=== PATIENT | female | born 1985 | race Caucasian/White ===

== ENCOUNTER 2022-01-01 21:26 | Emergency (ER) | payer MEDICAID, SELFPAY ==
[2022-01-01 21:28] VITALS: BP 139/87; PULSE 101; RESP 14; TEMP 36.6; O2SAT 98; BMI 28.4
--- NOTE | 2022-01-01 21:53 | EDS_ITS ---
HPI History of Present Illness Chief Complaint: Other, Pain/Inj Detail of Chief Complaint: Upper neck and back pain without any trauma. Informant: patient Onset/Context/Timing Onset: Today and Weeks Current Severity: Moderate Maximum Severity: Moderate Associated Symptoms Associated Symptoms: Negative for Parasthesias, Weakness, Loss of function, Inability to ambulate, Loss of consciousness or Amnesia Narrative Narrative: 36-year-old female history of fibromyalgia, thyroid cancer with thyroidectomy, hypertension and kidney stones. Patient states she has had back problems the last several months she has been adjusted several times by chiropractor. Said recently she let her son walk on her back. 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 States that she is got pain in her upper back and neck. Mild headache. Worse with movement. No fever. No tr auma. No blood thinners. No family history of intracranial bleeds or brain aneurysms. Prior similar symptoms: Yes Recent Illness/Hospitalization: No PFSH PFSH Medical History (Updated 01/01/22 @ 22:[address] Jose Ruiz MD) Anxiety Asthma Bipolar disorder Cancer Depression Former smoker Hypertension Hypothyroidism Kidney stones Migraines Seizures Home Medications brexpiprazole 0.5 mg tablet (Rexulti) 0.5 mg PO DAILY 01/01/22 [History Last Taken Unknown] buspirone 10 mg tablet 10 mg PO BID 01/01/22 [History Last Taken Unknown] enalapril maleate 20 mg tablet (Vasotec) 20 mg PO DAILY 01/01/22 [History Last Taken Unknown] hydroxyzine HCl 10 mg tablet 75 mg PO TID 01/01/22 [History Last Taken Unknown] levothyroxine 200 mcg tablet 200 mcg PO DAILY 01/01/22 [History Last Taken Unknown] metaxalone 800 mg tablet 800 mg PO TID PRN muscle pain 7 days #21 tabs 01/01/22 [Rx Last Taken Unknown] Allergy/AdvReac Type Severity Reaction Status Date / Time Penicillins AdvReac Hives Verified 01/01/22 21:33 Surgical History (Updated 01/01/22 @ 21:58 by Guerita Hairston) H/O thyroidectomy History of appendectomy History of cholecystectomy Social History Smoking Status: Former smoker ROS ROS ED ROS Narrative Neck and upper back pain. Review of Systems ROS Unobtainable: Denies due to encephalopathy Constitutional Constitutional ED: Denies chills or fever(s) Eyes Eyes: Denies blurry vision ENT ENT ED: Denies ear pain Cardiovascular Cardiovascular: Denies chest pain Respiratory/Chest Respiratory/Chest: Denies cough Gastrointestinal Gastrointestinal: Denies abdominal pain Genitourinary Genitourinary ED: Denies dysuria Musculoskeletal Musculoskeletal: Reports back pain, myalgias and neck pain; Denies arthralgias Integumentary Denies abscess Neurologic Neurologic: Reports headache(s) Psychiatric Psychiatric: Denies anxiety Endocrine Endocrinology: Denies cold intolerance Hematologic/Lymphatic Hematologic/Lymphatic: Denies easy bleeding Allergic/Immunologic Allergic/Immunologic ED: Denies mouth swelling or tongue swelling EXAM Physical Exam Narrative Exam Narrative: 36-year-old female vital signs are stable afebrile. H EENT exam unremarkable atraumatic. Pupils round reactive light. Her paraspinal soft tissue on both sides is tense and tender consistent with muscle spasm. Also her upper back. There is no trauma. No meningismus. Trachea midline no lymphadenopathy. Lungs clear to auscultation. Heart regular rhythm no murmur. Rate about 100. Abdomen soft nontender. Moving all 4 extremities. Neurovascular intact. Normal motor strength bilaterally. Normal dorsi plantar flexion. Normal sensation. Neck and upper back has soft tissue tenderness and muscle spasm. Neurologic exam is normal. NIH is 0. Const Vital Signs: 01/01/22 21:28 01/01/22 22:06 Temperature 97.8 F Temperature Source Temporal Pulse Rate 101 H Respiratory Rate 14 Respiratory Pattern Normal Blood Pressure 139/87 H Blood Pressure Mean 104 Pulse Ox 98 Oxygen Delivery Method Room Air Positive well nourished and well developed; Negative for cachectic, contractures or unkempt General Appearance ED: well developed; Negative for unkempt, cachectic or contractures Nutritional Appearance: Negative for cachectic HEENT atraumatic; Negative for trauma or tenderness Eyes PERRL and EOMs intact bilaterally Neck No full ROM Neck Narrative: Bilateral soft tissue tenderness to her paracervical musculature. And also upper back consistent with muscle spasms. General: tenderness Chest Wall inspection of chest normal and palpation of chest normal Resp normal respiratory effort and clear to auscultation bilaterally Effort and Inspection: Negative for pain with movement Auscultation: Negative for rales, rhonchi, wheezes, diminished lung sounds or other Cardio regular rhythm, S1 normal heart sound, S2 normal heart sound and no murmurs Palpation: Negative for palpable S3 Rate: regular rate GI normal to inspection, nondistended, normoactive bowel sounds, non-tender, non-distended and no masses Inspection: Negative for abdominal distention Auscultation: normoactive bowel sounds Palpation: soft Back/Spine normal to inspection and no thoracic nor lumbar tenderness Back/Spine Narrative: Paracervical and upper back soft tissue tenderness. No spine tenderness. Consistent with muscle spasm. Extremity normal to inspection and full ROM General Extremety ED: Negative for deformity or edema General Extremity: Negative for deformity or edema Neuro oriented x3, CN's II-XII intact bilaterally, moves all extremities, no focal motor deficits and no sensory deficits noted Sensorium / Orientation: alert Motor Exam: strength 5/5 throughout Psych mental status grossly normal and thought process normal Appearance: Negative for unkempt Attitude: No agitated Mood & Affect: anxious; Negative for depressed Skin no rashes or lesions noted, no wounds and no jaundice Rashes: No rashes noted Trauma: Negative for abrasion Wounds: Negative for wounds noted MDM MDM MDM Narrative Medical decision making narrative: 36-year-old female fibromyalgia as bilateral neck and upper back soft tissue tenderness consistent with myofascial strain and spasm. She will be treated with IM Toradol and p.o. Valium and reassess. She does not need any imaging because she has had no injury or trauma. This is been going on now for several weeks to months. Repeat exam patient is resting more comfortably. She is less anxious. She believes that since her spine I explained to her its its soft tissue muscle spasm. She will be discharged home with a prescription for Skelaxin. Anti-inflammatories. And follow-up with her primary care physician if not improving. Discharge Plan Triage Chief Complaint: Other, Pain/Inj ED Provider: Jose Ruiz Dx/Rx/DC Orders Clinical Impression: Muscle spasm Instructions: ED Back Spasm, No Trauma, ED Neck Spasm, No Trauma Prescriptions: New metaxalone 800 mg tablet 800 mg PO TID PRN (Reason: muscle pain) 7 Days Qty: 21 0RF No Action enalapril maleate [Vasotec] 20 mg Tablet 20 mg PO DAILY buspirone 10 mg Tablet 10 mg PO BID levothyroxine 200 mcg Tablet 200 mcg PO DAILY hydroxyzine HCl 10 mg Tablet 75 mg PO TID Rexulti 0.5 mg Tablet 0.5 mg PO DAILY Primary Care Provider: Care Physician,No Primary Referrals: Marly Lance MD [STAFF PHYSICIAN] - As Needed NOT,DEFINED [NON-STAFF] - Activity Restrictions/Additional Instructions: Motrin and Tylenol for pain. Skelaxin as a muscle relaxant. Hot shower, warm bath, hot tub and massage. This should progressively improve. Follow-up with your doctor if not improving. Disposition Disposition: Home, Self Care
[2022-01-01] MEDS: diazePAM 5 MG Tablet 10 MG PO (22:01)
[2022-01-01 23:10] VITALS: RESP 16
== END 2022-01-01 23:11 | disposition home or self-care (01) ==
LOC: ED 22:25
PROVIDERS: Emergency Provider Emergency Medicine; Visit Provider Emergency Medicine
DX: M62.838 Other muscle spasm (principal); F31.9 Bipolar disorder, unspecified; G40.909 Epilepsy, unspecified, not intractable, without status epilepticus; F41.9 Anxiety disorder, unspecified; J45.909 Unspecified asthma, uncomplicated; E03.9 Hypothyroidism, unspecified; I10 Essential (primary) hypertension; Z87.442 Personal history of urinary calculi; M79.7 Fibromyalgia; Z79.899 Other long term (current) drug therapy; Z85.850 Personal history of malignant neoplasm of thyroid; Z87.891 Personal history of nicotine dependence
CPT/HCPCS: 99283

== ENCOUNTER 2022-11-27 23:00 | Emergency (ER) | payer MEDICAID, SELFPAY ==
[2022-11-27 23:01] VITALS: BP 133/90; PULSE 80; RESP 15; TEMP 36.3; O2SAT 99; BMI 26.4
--- NOTE | 2022-11-28 00:20 | CT_ITS ---
INDICATION: LLQ pain EXAMINATION: CT ABDOMEN AND PELVIS WITH CONTRAST - CT Abdomen And Pelvis W/ Contrast Injection TECHNIQUE: Helically acquired images were obtained of the abdomen and pelvis following IV contrast. A radiation dose optimization technique was used for this scan. IV Contrast dosage and agent: 100 mL Isovue-370 Oral contrast: None. COMPARISON: None. FINDINGS: LOWER CHEST: Mild dependent atelectasis.. No cardiomegaly or pericardial effusion. LIVER: Homogeneous. No focal mass. GALLBLADDER AND BILIARY TREE: Cholecystectomy. No intra- or extrahepatic biliary ductal dilation. PANCREAS: No focal cystic or solid mass. SPLEEN: Normal size without focal cystic or solid mass. ADRENAL GLANDS: No nodules. KIDNEYS AND URETERS: Normal renal size and position. No hydronephrosis. PERITONEUM: No ascites or free air. No other fluid collection. BOWEL: No acute gastric finding. No small bowel distention or focal wall thickening. Prior appendectomy. Large colonic stool burden from cecum to splenic flexure. LYMPH NODES: No enlarged mesenteric or retroperitoneal lymph nodes. VESSELS: Aorta is non-dilated. URINARY BLADDER: Unremarkable. REPRODUCTIVE ORGANS: Unremarkable uterus. Normal ovaries with small follicles.. ABDOMINAL WALL: No discrete abdominal or pelvic wall hernia. BONES: No lytic or blastic abnormality. CT/Abdomen/Pelvis W IV Cont ONLY IMPRESSION: Moderate to large colonic stool burden as can be seen with constipation. No other acute finding. Electronically Signed: Clyde Allen MD at 2:01 EDT ,
[2022-11-28] MEDS: 0.9% Normal Saline 1,000 ML 999 ML IV (00:43)
[2022-11-28] MEDS: Ondansetron 4 MG/2 ML Vial IV ×2 (00:44→02:12)
[2022-11-28] MEDS: Morphine 4 MG/ML Syringe IV ×2 (00:44→02:12)
[2022-11-28 00:45] LABS: Bacteria 0 SEEN /hpf (None Seen); Mucous, Urine 0 SEEN /hpf (<or=2+); Red Blood Cells-Urine 0 SEEN /hpf (0-5); Squamous Epithelial Cells - UA 0 SEEN /hpf (5-10); White Blood Cells 0 SEEN /hpf (0-5)
[2022-11-28 00:47] LABS: Absolute Lymphocyte Count 1.92 X10^3/uL (0.83-4.51); Absolute Neutrophil Count 3.1 X10^3/uL (2.0-7.7); Basophil# 0.04 X10^3/uL; Basophil% 0.7 % (0-1); Eosinophil# 0.07 X10^3/uL; Eosinophils% 1.2 % (0-5); Hematocrit 28.2 % (37-47); Hemoglobin 9.1 g/dL (12.0-15.0); Lymphocyte # 1.92 X10^3/ul (0.83-4.51); Mean Corp Hgb Conc 32.3 g/dL (32-36); Mean Corpuscular Hgb 27.6 pg (27.0-32.0); Mean Corpuscular Volume 85.5 fL (81-99); Mean Platelet Vol. 8.1 fl (6.2-12.0); Monocyte# 0.49 X10^3/uL; Monocyte% 8.7 % (0-10); NRBC Flagged by Analyzer 0 % (0-5); Neutrophil # 3.11 X10^3/uL (2.7-7.7); Neutrophil % 55.2 % (47-70); Platelet Count 216 K/mm3 (150-450); RBC Distribution Width CV 16.1 % (11.6-14.6); RBC Distribution Width SD 50.7 fl (35.1-43.9); White Blood Count 5.6 K/mm3 (4.4-11.0)
[2022-11-28 00:49] LABS: Glucose, Dipstick Normal (Normal); Ketone-Dipstick Negative (Negative); Leukocyte Esterase-Dipstick Negative /ul (Negative); Nitrite-Dipstick Negative (Negative); Occult Blood-Urine 150 /ul (Negative); Protein-Dipstick Negative (Negative); Specific Gravity, Urine 1.025 (1.002-1.030); Urine Bilirubin Dipstick Negative (Negative); Urine Urobilinogen Normal (Normal)
[2022-11-28 00:50] LABS: Color, Urine Yellow (Yellow); Urine Clarity Clear (Clear)
[2022-11-28 01:02] LABS: Anion Gap 7 (5-15); BUN 14 mg/dL (7-18); BUN/Creat Ratio 16.7 RATIO (10-20); Calcium,Total 8.7 mg/dL (8.5-10.1); Chloride 108 mmol/L (98-107); Creatinine, Serum 0.84 mg/dL (0.55-1.02); EST Glomerular Filtration Rate 82 mL/min (>60); Est Glom Filt Rate - Afr Amer 99 mL/min (>60); Estimated Creatinine Clearance 104.48 ml/min; Glucose 100 mg/dL (74-106); Sodium Level 140 mmol/L (136-145)
[2022-11-28 01:19] LABS: Internal QC Validated? YES +Cl - CLEAR BKGD; Pregnancy, Serum, hCG Quali. NEGATIVE Negative
[2022-11-28 02:44] VITALS: PULSE 71; RESP 17; O2SAT 99
--- NOTE | 2022-11-28 02:45 | EX.ED.DYSGE1 ---
HPI History of Present Illness Chief Complaint: Other, Pain/Inj Informant: patient Narrative Narrative: Patient is a 36-year-old female with past medical history of bipolar disorder and hypertension. She states she has had pain in the left hip for the last few weeks. She states that she seen her doctor and been placed on medications and there is been no improvement. She states she was lifting when she felt the pain come on and then it gradually increased over the course of hours. She states that she has been trying to stretch and exercise to help reduce the pain but there has been no improvement in how she feels like it has worsened and therefore comes in for evaluation. She denies any loss of bowel or bladder control or IV drug use. [facility] Medical History (Updated 12/01/22 @ 05:[address] Addison Farley DO) Anxiety Asthma Bipolar disorder Cancer Depression Former smoker Hypertension Hypothyroidism Kidney stones Migraines Seizures Home Medications enalapril maleate 20 mg tablet (Vasotec) 20 mg PO DAILY 01/01/22 [History Last Taken Unknown] levothyroxine 200 mcg tablet 200 mcg PO DAILY 01/01/22 [History Last Taken Unknown] fluoxetine 40 mg capsule 40 mg PO DAILY 11/28/22 [History Last Taken Unknown] meloxicam 15 mg tablet 15 mg PO DAILY 11/28/22 [History Last Taken Unknown] methocarbamol 500 mg tablet 1,000 mg PO 4X/DAY PRN PRN Muscle pain/spasm #56 tabs 11/28/22 [Rx Last Taken Unknown] oxycodone-acetaminophen 5 mg-325 mg tablet (Percocet) 1 tab PO Q6H PRN pain 3 days #12 tabs 11/28/22 [Rx Last Taken Unknown] Allergy/AdvReac Type Severity Reaction Status Date / Time Penicillins AdvReac Hives Verified 11/27/22 23:04 Surgical History H/O thyroidectomy History of appendectomy History of cholecystectomy Social History Smoking Status: Former smoker ROS ROS ED Constitutional Constitutional ED: Denies chills or fever(s) ENT ENT ED: Denies sore throat Cardiovascular Cardiovascular: Denies chest pain Respiratory/Chest Respiratory/Chest: Denies cough or dyspnea Gastrointestinal Gastrointestinal: Reports abdominal pain and constipation; Denies diarrhea, nausea or vomiting Genitourinary Genitourinary ED: Denies dysuria or hematuria Musculoskeletal Musculoskeletal: Reports back pain and myalgias Integumentary Denies rash Neurologic Neurologic: Denies headache(s) or paresthesias Hematologic/Lymphatic Hematologic/Lymphatic: Denies easy bleeding or easy bruising EXAM Physical Exam Const Vital Signs: 11/27/22 23:01 11/28/22 00:34 Temperature 97.4 F L Temperature Source Temporal Pulse Rate 80 Respiratory Rate 15 Respiratory Pattern Normal Blood Pressure 133/90 H Blood Pressure Mean 104 Pulse Ox 99 Oxygen Delivery Method Room Air Positive well nourished and well developed General Appearance ED: well developed HEENT HEENT Narrative: Normocephalic atraumatic Eyes PERRL and EOMs intact bilaterally General Eye ED: Negative for scleral icterus Neck supple Resp normal respiratory effort and clear to auscultation bilaterally Cardio regular rate and regular rhythm Rate: other Other Details: Radial pulses are plus 2 out of 4 bilaterally are equal and symmetric GI non-distended GI Narrative: Abdomen is soft and nondistended with hypoactive bowel sounds. Mild pain with palpation in the left lower quadrant without any voluntary guarding or rigidity. No pulsatile mass or fluid wave Auscultation: hypoactive bowel sounds Palpation: soft Back/Spine no CVA tenderness Back/Spine Narrative: No bony deformity or step-off of the thoracic or lumbar spine no midline pain on palpation. No saddle anesthesia. Negative straight leg raise. No clonus or Babinski. Patellar reflexes are plus 2 out of 4 bilaterally There is increased pain with external rotation and abduction of the hip. There is also pain with palpation over top the upper gluteal muscle as well as the left piriformis muscle belly. Extremity normal to inspection Extremity Narrative: Negative Homans' sign bilaterally Neuro oriented x3, CN's II-XII intact bilaterally and no sensory deficits noted Sensorium / Orientation: alert Psych mental status grossly normal Skin no rashes or lesions noted Skin Narrative: No overlying soft tissue changes to suggest trauma or infection MDM MDM MDM Narrative Medical decision making narrative: Patient presented to the ER hypertensive but has a past medical history of this and is in pain. She reported pain in the left hip for multiple weeks despite taking medications and trying stretching/exercise. She denied any loss of bowel or bladder control or IV drug use and therefore my concern for cauda equina or epidural abscess is low. She has not had any type of recent surgical procedure of her back as well going against discitis. With pain worse with motion of the left hip that came on after lifting this is most likely a muscular tear. However as she also has pain in the left lower quadrant this could be an atypical presentation for intestinal infection. Therefore I did like to perform basic laboratory studies and a CT scan of the abdomen and pelvis. Labs revealed no clinically significant findings and CT scan showed constipation without perforation or infectious process. At this time with negative work-up there is no need for further evaluation in the ER. Patient will be advised to follow-up with her family doctor and physical therapy to discuss need for MRI to check for possible muscle tear but as she does not have obstruction or infectious process there is no need for further work-up and she is otherwise safe for discharge History & Record Review Discussion w/independent historian: Patient Lab Data Attestation: I reviewed the patient's lab results. Labs: Laboratory Results - last 24 hr 11/28/22 11/28/22 11/28/22 00:42 00:42 00:42 WBC 5.6 RBC 3.30 L Hgb 9.1 L Hct 28.2 L MCV 85.5 MCH 27.6 MCHC 32.3 RDW Std Deviation 50.7 H RDW Coeff of Rodrigo 16.1 H Plt Count 216 MPV 8.1 Immature Gran % (Auto) 0.200 Neut % (Auto) 55.2 Lymph % (Auto) 34.0 [place] % (Auto) 8.7 Eos % (Auto) 1.2 Baso % (Auto) 0.7 Absolute Neuts (auto) 3.1 Absolute Lymphs (auto) 1.92 Nucleated RBC % 0 Sodium 140 Potassium 4.0 Chloride 108 H Carbon Dioxide 25.0 Anion Gap 7 BUN 14 Creatinine 0.84 Estim Creat Clear Calc 104.48 Est GFR (MDRD) Af Amer 99 Est GFR (MDRD) Non-Af 82 BUN/Creatinine Ratio 16.7 Glucose 100 Calcium 8.7 Serum , Qual NEGATIVE Urine Color Urine Clarity Urine pH Ur Specific [place] Urine Protein Urine Glucose (UA) Urine Ketones Urine Occult Blood Urine Nitrite Urine Bilirubin Urine Urobilinogen Ur Leukocyte Esterase Urine RBC Urine WBC Ur Squamous Epith Cells Urine Bacteria Urine Mucus 11/28/22 00:42 WBC RBC Hgb Hct MCV MCH MCHC RDW Std Deviation RDW Coeff of Rodrigo Plt Count MPV Immature Gran % (Auto) Neut % (Auto) Lymph % (Auto) [place] % (Auto) Eos % (Auto) Baso % (Auto) Absolute Neuts (auto) Absolute Lymphs (auto) Nucleated RBC % Sodium Potassium Chloride Carbon Dioxide Anion Gap BUN Creatinine Estim Creat Clear Calc Est GFR (MDRD) Af Amer Est GFR (MDRD) Non-Af BUN/Creatinine Ratio Glucose Calcium Serum , Qual Urine Color Yellow Urine Clarity Clear Urine pH 5.0 Ur Specific [place] 1.025 Urine Protein Negative Urine Glucose (UA) Normal Urine Ketones Negative Urine Occult Blood 150 H Urine Nitrite Negative Urine Bilirubin Negative Urine Urobilinogen Normal Ur Leukocyte Esterase Negative Urine RBC 0 SEEN Urine WBC 0 SEEN Ur Squamous Epith Cells 0 SEEN Urine Bacteria 0 SEEN Urine Mucus 0 SEEN Radiography Diagnostic Testing: Clinical Impression(s) from Imaging Studies Abdomen/Pelvis CT 11/28/22 00:20 IMPRESSION: Moderate to large colonic stool burden as can be seen with constipation. No other acute finding. Electronically Signed: Clyde Allen MD at 2:01 EDT Reading Location ID and State: [facility] / [place] Tel , Service support , Discharge Plan Triage Chief Complaint: Other, Pain/Inj ED Provider: Addison Farley Dx/Rx/DC Orders Clinical Impression: Strain of left hip adductor muscle, Constipation Instructions: ED Hip Strain Prescriptions: New methocarbamol 500 mg tablet 1,000 mg PO 4X/DAY PRN PRN (Reason: Muscle pain/spasm) Qty: 56 1RF oxycodone-acetaminophen [Percocet] 5-325 mg tablet 1 tab PO Q6H PRN (Reason: pain) 3 Days Qty: 12 0RF No Action enalapril maleate [Vasotec] 20 mg Tablet 20 mg PO DAILY levothyroxine 200 mcg Tablet 200 mcg PO DAILY fluoxetine 40 mg capsule 40 mg PO DAILY Label Comments: TAKE 1 CAPSULE BY MOUTH ONCE DAILY meloxicam 15 mg tablet 15 mg PO DAILY Primary Care Provider: Ellie Saxena Referrals: Ellie Saxena, [employer] [Primary Care Provider] - Disposition Disposition: Home, Self Care Discharge Date/Time: 11/28/22 03:09
== END 2022-11-28 03:09 | disposition home or self-care (01) ==
PROVIDERS: Emergency Provider Emergency Medicine; PCP Nurse Practitioner Family; Visit Provider Emergency Medicine
DX: S76.212A Strain of adductor muscle, fascia and tendon of left thigh, initial encounter (principal); Z87.891 Personal history of nicotine dependence; I10 Essential (primary) hypertension; K59.00 Constipation, unspecified; Z79.899 Other long term (current) drug therapy; E03.9 Hypothyroidism, unspecified; Z90.49 Acquired absence of other specified parts of digestive tract; X50.9XXA Other and unspecified overexertion or strenuous movements or postures, initial encounter
CPT/HCPCS: 74177; 80048; 81001; 84703; 85025; 96361; 96374; 96375; 96376; 99283; J7030; Q9967; A4216; J2405